=== PATIENT | male | born 1995 | race Caucasian/White ===

== ENCOUNTER 2022-09-03 04:02 | Emergency (ER) | payer OTHER, SELFPAY ==
[2022-09-03] VITALS (9 sets, daily range): BP systolic 120–153; BP diastolic 61–85; PULSE 55–70; RESP 16; TEMP 36.4; O2SAT 97–99; BMI 35.9
[2022-09-03 04:35] LABS: Add Manual Diff / Slide Review NO; Basophils Absolute Auto 0 /uL (0-100); Basophils Percent Auto 0.7 % (0-2); Eosinophils Absolute Auto 200 /uL (0-450); Eosinophils Percent Auto 2.9 % (2-4); Hemoglobin 14.5 g/dL (13.5-17.5); Lymphocytes Absolute Auto 2100 /uL (1100-4500); Lymphocytes Percent Auto 35.4 % (25-40); Mean Corpuscular HGB Conc 35.3 % (30-36); Mean Corpuscular Hemoglobin 30.2 PG (26-34); Mean Corpuscular Volume 85.3 fL (80-100); Monocytes Absolute Auto 500 /uL (0-900); Monocytes Percent Auto 8.4 % (3-14); Neutrophils Absolute Auto 3100 /uL (1500-7000); Neutrophils Percent Auto 52.6 % (50-75); Platelet Count 255 X10^3/uL (150-400); Red Cell Distribution Width 12.5 % (11.6-14.8); White Blood Cell Count 5.9 X10^3/uL (4.5-11.0)
[2022-09-03 04:43] LABS: Alanine Aminotransferase 29 IU/L (<50); Albumin 4.3 g/dL (3.5-5.0); Albumin Globulin Ratio 1.2 (1.0-2.8); Alkaline Phosphatase 51 U/L (38-126); Aspartate Aminotransferase 29 IU/L (17-59); BUN Creatinine Ratio 15.5 (6-22); Bilirubin Total 0.5 mg/dL (0.2-1.3); Blood Urea Nitrogen 11 mg/dL (9-20); Calcium 8.7 mg/dL (8.4-10.2); Carbon Dioxide 24 mmol/L (22-32); Chloride 103 mmol/L (98-107); Estimated Glomerular Filt Rate > 60 mL/min (>60); Globulin 3.5 g/dL (1.7-4.1); Glucose 109 mg/dL (70-100); HEMOLYSIS 30 (0-50); Lipase 94 U/L (23-300); Sodium 137 mmol/L (137-145); Total Protein 7.8 g/dL (6.3-8.2)
--- NOTE | 2022-09-03 06:17 | DI.CT.S_ITS ---
PROCEDURE: CT ABDOMEN PELVIS W CON INDICATIONS: epigastric pain TECHNIQUE: After the administration of intravenous contrast, axial sections acquired from the lung bases to the pubic symphysis. Coronal and sagittal reformats were performed. For radiation dose reduction, the following was used: automated exposure control, adjustment of mA and/or kV according to patient size. COMPARISON: None. FINDINGS: Image quality: Excellent. Lung bases: Unremarkable. Heart: No significant findings. ABDOMEN: Liver: Unremarkable. Gallbladder: Unremarkable. Biliary ducts: Unremarkable. Pancreas: Unremarkable. Spleen: Unremarkable. Adrenal Glands: Unremarkable. Kidneys and Ureters: Unremarkable. Stomach and Bowel: Stomach, small bowel loops, and colon are unremarkable. [id number] stool in the colon. Normal appendix. Peritoneum: No abnormal intraperitoneal fluid. No free air. Ventral Wall: Tiny periumbilical hernia. Nodular thickening is seen at the skin surface at the right suprapubic region with surrounding subcutaneous fat stranding. Abdominal Nodes: No retroperitoneal or mesenteric adenopathy by size criteria. Vessels: Aorta and inferior vena cava are normal in size. PELVIS: Pelvic Organs: Unremarkable. Bladder: Unremarkable. Pelvic Nodes: No enlarged lymph nodes. Miscellaneous: No hernias are seen. Bones: Unremarkable. IMPRESSION: 1. Focal skin thickening and surrounding subcutaneous edema at the right lower abdominal wall in the suprapubic region. 2. No acute intraperitoneal abnormality identified. There is no significant discrepancy when compared to the overnight preliminary report. Approved by: Vicente Vo M.D. on 09/03/2022 at 8:34
--- NOTE | 2022-09-03 06:18 | ED_ITS ---
HPI - Abdominal Pain <Kelly Chaudhary DO - Last Filed: 09/08/22 08:08> General Chief Complaint: Abdominal Pain Stated Complaint: abd pain Time Seen by Provider: 09/03/22 06:05 Source: patient Mode of arrival: Ambulatory History of Present Illness HPI narrative: This is a 27-year-old male with history of reflux, no prior surgeries. Patient states he started developing epigastric abdominal pain over the last day. It has been persistent. Does not radiate to his chest. Does not radiate to his lower abdomen. He denies any radiation to his back pain goes a little bit off to the right side. Patient denies fevers, chills or diaphoresis. Denies any nausea or vomiting. States he had a bowel movement this evening. No black or bloody stools. He states no diarrhea or constipation. No dysuria, urgency or frequency. No flank pain. Patient states he takes omeprazole daily. No prior surgeries. No known drug allergies. He vapes tobacco, alcohol once or twice monthly, no illicit. He is accompanied by his partner. Denies any cardiac medical history or GI/Crohn history. Related Data Allergies Allergy/AdvReac Type Severity Reaction Status Date / Time No Known Drug Allergies Allergy Verified 09/03/22 06:23 Review of Systems <Kelly Chaudhary DO - Last Filed: 09/08/22 08:08> Review of Systems ROS Unobtainable: All systems reviewed & are unremarkable except as noted in HPI and below Patient History <Kelly Chaudhary DO - Last Filed: 09/08/22 08:08> Social History Smoking Status: Current every day smoker Smoking Status: Current every day smoker tobacco type: vaping alcohol intake frequency: holidays/special occasions only Exam <Kelly Chaudhary DO - Last Filed: 09/08/22 08:08> Narrative Exam Narrative: GENERAL: Alert and oriented x three, male in [id number] distress. HEENT: Head normocephalic, atraumatic, EOMI, pupils reactive, face symmetric, moist mucous membranes NECK: Supple, full range of motion CARDIOVASCULAR: Regular rate and rhythm without murmurs, rubs or gallops. RESPIRATORY: Breath sounds equal bilaterally, no wheezes rales or rhonchi. No tachypnea or accessory muscle use. ABDOMEN: Soft, nontender. Nondistended. Normoactive bowel sounds all 4 quadrants. No guarding or rebound, rigidity, no mass, no bruit or pulsatile mass. : No CVA tenderness EXTREMITIES: Normal range of motion, no clubbing or edema. Neurovascularly intact NEUROLOGICAL: Cranial nerves II through XII grossly intact. Moving all extremities SKIN: Warm, dry, no petechiae, no rashes or lesions. Initial Vital Signs Initial Vital Signs: Vital Signs Temperature 97.6 F 09/03/22 04:08 Pulse Rate 70 09/03/22 04:08 Respiratory Rate 16 09/03/22 04:08 Pulse Oximetry 98 09/03/22 04:08 Oxygen Delivery Method 09/03/22 04:08 <Seng Agustin DO - Last Filed: 09/03/22 13:20> Initial Vital Signs Initial Vital Signs: Vital Signs Temperature 97.6 F 09/03/22 04:08 Pulse Rate 70 09/03/22 04:08 Respiratory Rate 16 09/03/22 04:08 Pulse Oximetry 98 09/03/22 04:08 Oxygen Delivery Method 09/03/22 04:08 Course <Kelly Chaudhary, DO - Last Filed: 09/08/22 08:08> Orders Ordered: Discontinued Medications Sodium Chloride (Normal Saline 0.9%) 1,000 mls @ 1,000 mls/hr IV BOLUS ONE Stop: 09/03/22 07:15 Last Infusion: 09/03/22 07:54 Dose: 0 mls/hr Documented By: Admin: 09/03/22 06:35 Dose: 1,000 mls/hr Documented By: ROWAN Ondansetron HCl (Ondansetron 4 Mg Odt) 4 mg PO NOW PRN PRN Reason: Nausea And Vomiting Ondansetron HCl (Ondansetron 4 Mg/2 Ml Inj) 4 mg IV NOW PRN PRN Reason: Nausea And Vomiting Pantoprazole Sodium (Pantoprazole 40 Mg Vial) 40 mg IV NOW ONE Stop: 09/03/22 06:17 Last Admin: 09/03/22 06:35 Dose: 40 mg Documented By: BS Vital Signs Vital signs: Vital Signs - 8 hr 09/03/22 05:46 09/03/22 05:46 09/03/22 06:00 Pulse Rate 55 L 58 L Blood Pressure 125/82 Pulse Oximetry 99 98 09/03/22 06:36 09/03/22 06:40 09/03/22 06:40 Pulse Rate 59 L 55 L Blood Pressure 120/74 Pulse Oximetry 97 97 09/03/22 07:00 09/03/22 07:00 09/03/22 07:30 Pulse Rate 67 Blood Pressure 153/84 H 136/85 Pulse Oximetry 99 09/03/22 07:30 09/03/22 08:11 09/03/22 08:12 Pulse Rate 65 Blood Pressure 138/61 Pulse Oximetry 97 98 09/03/22 08:12 Pulse Rate 63 Blood Pressure Pulse Oximetry 98 <Seng Agustin DO - Last Filed: 09/03/22 13:20> Orders Ordered: Discontinued Medications Sodium Chloride (Normal Saline 0.9%) 1,000 mls @ 1,000 mls/hr IV BOLUS ONE Stop: 09/03/22 07:15 Last Infusion: 09/03/22 07:54 Dose: 0 mls/hr Documented By: Admin: 09/03/22 06:35 Dose: 1,000 mls/hr Documented By: ROWAN Ondansetron HCl (Ondansetron 4 Mg Odt) 4 mg PO NOW PRN PRN Reason: Nausea And Vomiting Ondansetron HCl (Ondansetron 4 Mg/2 Ml Inj) 4 mg IV NOW PRN PRN Reason: Nausea And Vomiting Pantoprazole Sodium (Pantoprazole 40 Mg Vial) 40 mg IV NOW ONE Stop: 09/03/22 06:17 Last Admin: 09/03/22 06:35 Dose: 40 mg Documented By: ROWAN Vital Signs Vital signs: Vital Signs - 8 hr 09/03/22 05:46 09/03/22 05:46 09/03/22 06:00 Pulse Rate 55 L 58 L Blood Pressure 125/82 Pulse Oximetry 99 98 09/03/22 06:36 09/03/22 06:40 09/03/22 06:40 Pulse Rate 59 L 55 L Blood Pressure 120/74 Pulse Oximetry 97 97 09/03/22 07:00 09/03/22 07:00 09/03/22 07:30 Pulse Rate 67 Blood Pressure 153/84 H 136/85 Pulse Oximetry 99 09/03/22 07:30 09/03/22 08:11 09/03/22 08:12 Pulse Rate 65 Blood Pressure 138/61 Pulse Oximetry 97 98 09/03/22 08:12 Pulse Rate 63 Blood Pressure Pulse Oximetry 98 MDM - Abdominal Pain <Kelly Chaudhary, - Last Filed: 09/08/22 08:08> Lab Data 09/03/22 04:20 09/03/22 04:20 Labs: Lab Results 09/03/22 09/03/22 Range/Units 04:20 04:20 WBC 5.9 (4.5-11.0) X10^3/uL RBC 4.80 (4.5-5.9) X10^6/uL Hgb 14.5 (13.5-17.5) g/dL Hct 41.0 (41-53) % MCV 85.3 (80-100) fL MCH 30.2 (26-34) PG MCHC 35.3 (30-36) % RDW 12.5 (11.6-14.8) % Plt Count 255 (150-400) X10^3/uL Neut % (Auto) 52.6 (50-75) % Lymph % (Auto) 35.4 (25-40) % [place] % (Auto) 8.4 (3-14) % Eos % (Auto) 2.9 (2-4) % Baso % (Auto) 0.7 (0-2) % Neut # (Auto) 3100 (7151-7172) /uL Lymph # (Auto) 2100 (2610-1140) /uL [place] # (Auto) 500 (0-900) /uL Eos # (Auto) 200 (0-450) /uL Baso # (Auto) 0 (0-100) /uL Sodium 137 (137-145) mmol/L Potassium 4.0 (3.4-5.1) mmol/L Chloride 103 (98-107) mmol/L Carbon Dioxide 24 (22-32) mmol/L BUN 11 (9-20) mg/dL Creatinine 0.71 (0.66-1.25) mg/dL Estimated GFR > 60 (>60) mL/min BUN/Creatinine Ratio 15.5 (6-22) Glucose 109 H (70-100) mg/dL Calcium 8.7 (8.4-10.2) mg/dL Total Bilirubin 0.5 (0.2-1.3) mg/dL AST 29 (17-59) IU/L ALT 29 (<50) IU/L Alkaline Phosphatase 51 (38-126) U/L Total Protein 7.8 (6.3-8.2) g/dL Albumin 4.3 (3.5-5.0) g/dL Globulin 3.5 (1.7-4.1) g/dL Albumin/Globulin Ratio 1.2 (1.0-2.8) Lipase 94 (23-300) U/L Point of care testing: Urine Dip Bedside Urine Glucose Negative Bedside Urine Bilirubin - Negative Bedside Urine Ketone - Negative Urine Specific [place] 1.005 Bedside Urine Occult Blood - Negative Bedside Urine pH 5.5 Bedside Urine Protein - Negative Bedside Urine Urobilinogen - Negative Bedside Urine Nitrite - Negative Bedside Urine Leukocytes - Negative Esterase MDM Narrative Medical decision making narrative: This is a 27-year-old male comes in with complaint of upper abdominal epigastric pain that has been present for last 24 hours. He has a history GERD he states this feels much different. States little bit radiation to the right. He is nontender on examination. I am not able to increase her palpate his pain. Patient denies fevers chills, no nausea. He had a normal bowel movement today. Plan for EKG, CMP, CBC and lipase are negative. Patient had imaging obtained. Signed out to Dr. Agustin while awaiting results and urine results. Patient had Protonix with some improvement of his symptoms. CC: 27M sudden RUQ pain Complicating co-morbidities: GERD, smoker Data collected from: patient Medical records reviewed: no records available in EMR Differential considered, but not limited to: gall bladder, pancreatitis, GERD vs. other Exam documented above, pertinent findings include: Soft abdomen bowel sounds present Lab Test results independently reviewed as above. Pertinent findings: No obvious leukocytosis or left shift, lytes, kidney function, LFTs and lipase within normal Independently reviewed EKG as above Imaging studies independently reviewed: CT without obstructive process, large stool burden noted Treatments: Saline, Zofran, Protonix Re-evaluations: Patient feeling much better Discussion: 19-year-old male with sudden onset colicky type upper abdominal pain with very reassuring history and physical exam, no remarkable labs, appropriate response to therapies and CT of the abdomen without significant findings. The multiple diagnoses were considered as noted above it seems likely that a combination of perhaps some reflux and abdominal pain related to a large stool burden are other source. Disposition: see below, along with detailed discharge instructions that have been reviewed with patient as well as indications for ED re-evaluation and additional outpatient follow up <Seng gAustin DO - Last Filed: 09/03/22 13:20> Lab Data Labs: Lab Results 09/03/22 09/03/22 Range/Units 04:20 04:20 WBC 5.9 (4.5-11.0) X10^3/uL RBC 4.80 (4.5-5.9) X10^6/uL Hgb 14.5 (13.5-17.5) g/dL Hct 41.0 (41-53) % MCV 85.3 (80-100) fL MCH 30.2 (26-34) PG MCHC 35.3 (30-36) % RDW 12.5 (11.6-14.8) % Plt Count 255 (150-400) X10^3/uL Neut % (Auto) 52.6 (50-75) % Lymph % (Auto) 35.4 (25-40) % [place] % (Auto) 8.4 (3-14) % Eos % (Auto) 2.9 (2-4) % Baso % (Auto) 0.7 (0-2) % Neut # (Auto) 3100 (5589-5910) /uL Lymph # (Auto) 2100 (6700-9739) /uL Payne # (Auto) 500 (0-900) /uL Eos # (Auto) 200 (0-450) /uL Baso # (Auto) 0 (0-100) /uL Sodium 137 (137-145) mmol/L Potassium 4.0 (3.4-5.1) mmol/L Chloride 103 (98-107) mmol/L Carbon Dioxide 24 (22-32) mmol/L BUN 11 (9-20) mg/dL Creatinine 0.71 (0.66-1.25) mg/dL Estimated GFR > 60 (>60) mL/min BUN/Creatinine Ratio 15.5 (6-22) Glucose 109 H (70-100) mg/dL Calcium 8.7 (8.4-10.2) mg/dL Total Bilirubin 0.5 (0.2-1.3) mg/dL AST 29 (17-59) IU/L ALT 29 (<50) IU/L Alkaline Phosphatase 51 (38-126) U/L Total Protein 7.8 (6.3-8.2) g/dL Albumin 4.3 (3.5-5.0) g/dL Globulin 3.5 (1.7-4.1) g/dL Albumin/Globulin Ratio 1.2 (1.0-2.8) Lipase 94 (23-300) U/L Point of care testing: Urine Dip Bedside Urine Glucose Negative Bedside Urine Bilirubin - Negative Bedside Urine Ketone - Negative Urine Specific [place] 1.005 Bedside Urine Occult Blood - Negative Bedside Urine pH 5.5 Bedside Urine Protein - Negative Bedside Urine Urobilinogen - Negative Bedside Urine Nitrite - Negative Bedside Urine Leukocytes - Negative Esterase Imaging Data CT scan - abdomen/pelvis: Radiologist's Impression: edema and skin thickening involving the lower anterior abdominal segment moderate to large stool burden MDM Narrative Medical decision making narrative: This is a 27-year-old male comes in with complaint of upper abdominal epigastric pain that has been present for last 24 hours. He has a history GERD he states this feels much different. States little bit radiation to the right. He is nontender on examination. I am not able to increase her palpate his pain. Patient denies fevers chills, no nausea. He had a normal bowel movement today. Plan for EKG, CMP, CBC and lipase are negative. CC: 27M sudden RUQ pain Complicating co-morbidities: GERD, smoker Data collected from: patient Medical records reviewed: no records available in EMR Differential considered, but not limited to: gall bladder, pancreatitis, GERD vs. other Exam documented above, pertinent findings include: Soft abdomen bowel sounds present Lab Test results independently reviewed as above. Pertinent findings: No obvious leukocytosis or left shift, lytes, kidney function, LFTs and lipase within normal Independently reviewed EKG as above Imaging studies independently reviewed: CT without obstructive process, large stool burden noted Treatments: Saline, Zofran, Protonix Re-evaluations: Patient feeling much better Discussion: 19-year-old male with sudden onset colicky type upper abdominal pain with very reassuring history and physical exam, no remarkable labs, appropriate response to therapies and CT of the abdomen without significant findings. The multiple diagnoses were considered as noted above it seems likely that a combination of perhaps some reflux and abdominal pain related to a large stool burden are other source. Disposition: see below, along with detailed discharge instructions that have been reviewed with patient as well as indications for ED re-evaluation and additional outpatient follow up Discharge Plan Departure Patient Disposition: Home Clinical Impression: Abdominal pain Instructions: DI for Abdominal Pain-Adult Activity Restrictions/Additional Instructions: *You have been diagnosed with [ abdominal pain likely due to constipation ] *What to do: *Take over the counter medications as directed: 1. Metamucil - is a bulk forming laxative and adds fiber 2. Colace - softens your stool 3. Dulcolax suppository - stimulates your bowels *Follow up with your primary care provider in 2-3 days, call for appointment *Return to ER if you should have any new, worsening or concerning symptoms *Drink plenty of water and eat foods high in fiber *Stay as active as you can as this helps move your bowels as well Referrals: ProviderYsabel [Primary Care Provider] - Stand Alone Forms: Patient Portal/API
[2022-09-03] MEDS: PANTOPRAZOLE 40 MG VIAL IV (06:35)
[2022-09-03] MEDS: SODIUM CHLORIDE 0.9% 1,000 ML 1000 ML IV (06:35)
== END 2022-09-03 08:15 | disposition home or self-care (01) ==
PROVIDERS: Emergency Medicine; Emergency Provider Emergency Medicine
DX: R10.13 Epigastric pain (principal)
CPT/HCPCS: 36415; 74177; 80053; 81003; 83690; 85025; 93005; 96374; 99284; C9113; Q9967

== ENCOUNTER 2023-11-08 17:08 | Emergency (ER) | payer OTHER, SELFPAY ==
[2023-11-08 17:17] VITALS: BP 143/86; PULSE 76; RESP 15; TEMP 36.8; O2SAT 97; BMI 38.0
[2023-11-08 18:06] LABS: Add Manual Diff / Slide Review NO; Basophils Absolute Auto 0 /uL (0-100); Basophils Percent Auto 0.3 % (0-2); Eosinophils Absolute Auto 100 /uL (0-450); Eosinophils Percent Auto 1.7 % (2-4); Hematocrit 38.7 % (41-53); Hemoglobin 13.3 g/dL (13.5-17.5); Lymphocytes Absolute Auto 2300 /uL (1100-4500); Lymphocytes Percent Auto 36.6 % (25-40); Mean Corpuscular HGB Conc 34.5 % (30-36); Mean Corpuscular Hemoglobin 29.8 PG (26-34); Mean Corpuscular Volume 86.3 fL (80-100); Monocytes Absolute Auto 400 /uL (0-900); Monocytes Percent Auto 6.4 % (3-14); Neutrophils Absolute Auto 3500 /uL (1500-7000); Platelet Count 255 X10^3/uL (150-400); Red Blood Cell Count 4.48 X10^6/uL (4.5-5.9); White Blood Cell Count 6.3 X10^3/uL (4.5-11.0)
[2023-11-08 18:18] LABS: Alanine Aminotransferase 26 IU/L (<50); Albumin 4.4 g/dL (3.5-5.0); Albumin Globulin Ratio 1.3 (1.0-2.8); Alkaline Phosphatase 53 U/L (38-126); Aspartate Aminotransferase 28 IU/L (17-59); BUN Creatinine Ratio 15.5 (6-22); Bilirubin Total 0.7 mg/dL (0.2-1.3); Blood Urea Nitrogen 11 mg/dL (9-20); Calcium 9.2 mg/dL (8.4-10.2); Carbon Dioxide 26 mmol/L (22-32); Chloride 105 mmol/L (98-107); Estimated Glomerular Filt Rate > 60 mL/min (>60); Globulin 3.3 g/dL (1.7-4.1); Glucose 95 mg/dL (70-100); HEMOLYSIS < 15 (0-50); Lipase 91 U/L (23-300); Potassium 3.7 mmol/L (3.4-5.1); Sodium 138 mmol/L (137-145); Total Protein 7.7 g/dL (6.3-8.2)
--- NOTE | 2023-11-08 18:59 | ED.ABDPAIN ---
HPI - Abdominal Pain General Chief Complaint: Abdominal Pain Stated Complaint: ABD Pain/dizzy Time Seen by Provider: 11/08/23 17:56 Source: patient Mode of arrival: Ambulatory History of Present Illness HPI narrative: Patient is a healthy 28-year-old female who has had chronic ongoing abdominal pain. He says that he had a CT scan last year showed that he is constipated he has been taking Colace every day however over the last 2 days he has had increased abdominal pain more over his pain umbilical region has not really radiating. He has not taken anything for pain. No nausea or vomiting no fever or chills. But he reports this is very different from his normal pain. Related Data Allergies Allergy/AdvReac Type Severity Reaction Status Date / Time No Known Drug Allergies Allergy Verified 11/08/23 17:17 Patient History Social History Smoking Status: Former smoker Smoking Status: Former smoker tobacco type: vaping alcohol intake frequency: holidays/special occasions only Substance Use Type: marijuana Exam Initial Vital Signs Initial Vital Signs: Vital Signs Temperature 98.3 F 11/08/23 17:17 Pulse Rate 76 11/08/23 17:17 Respiratory Rate 15 11/08/23 17:17 Blood Pressure 143/86 H 11/08/23 17:17 Pulse Oximetry 97 11/08/23 17:17 Oxygen Delivery Method Room Air 11/08/23 17:17 GENERAL: Alert 28-year-old male appears to not feel well HEENT: Head atraumatic,EOMI, pupils reactive, face symmetric, moist mucous membranes CARDIOVASCULAR: Regular rate and rhythm without murmurs, rubs or gallops. RESPIRATORY: Breath sounds equal bilaterally, no wheezes rales or rhonchi. ABDOMEN: Soft, mild tenderness periumbilical mid abdomen region no significant distention EXTREMITIES: Normal range of motion, no clubbing or edema. Neurovascularly intact NEUROLOGICAL: Alert and oriented x4.Normal gait and speech. SKIN: Warm, dry, no laceration, no petechiae, no rashes or lesions. Course Orders Ordered: ED Orders 11/08/23 19:03 CT abdomen pelvis w con Stat Discontinued Medications Ketorolac Tromethamine (Ketorolac 30 Mg/Ml Vial) 15 mg IV NOW ONE Stop: 11/08/23 19:04 Last Admin: 11/08/23 19:23 Dose: 15 mg Documented By: TOY Ondansetron HCl (Ondansetron 4 Mg Odt) 4 mg PO NOW PRN PRN Reason: Nausea And Vomiting Ondansetron HCl (Ondansetron 4 Mg/2 Ml Inj) 4 mg IV NOW PRN PRN Reason: Nausea And Vomiting Vital Signs Vital signs: Vital Signs - 8 hr 11/08/23 20:40 Pulse Rate 60 Respiratory Rate 18 Blood Pressure 121/60 Pulse Oximetry 98 Oxygen Delivery Method Room Air MDM - Abdominal Pain Lab Data 11/08/23 17:35 11/08/23 17:35 Labs: Lab Results 11/08/23 Range/Units 17:35 WBC 6.3 (4.5-11.0) X10^3/uL RBC 4.48 L (4.5-5.9) X10^6/uL Hgb 13.3 L (13.5-17.5) g/dL Hct 38.7 L (41-53) % MCV 86.3 (80-100) fL MCH 29.8 (26-34) PG MCHC 34.5 (30-36) % RDW 13.0 (11.6-14.8) % Plt Count 255 (150-400) X10^3/uL Neut % (Auto) 55.0 (50-75) % Lymph % (Auto) 36.6 (25-40) % [place] % (Auto) 6.4 (3-14) % Eos % (Auto) 1.7 L (2-4) % Baso % (Auto) 0.3 (0-2) % Neut # (Auto) 3500 (0235-7924) /uL Lymph # (Auto) 2300 (1865-2473) /uL [place] # (Auto) 400 (0-900) /uL Eos # (Auto) 100 (0-450) /uL Baso # (Auto) 0 (0-100) /uL Sodium 138 (137-145) mmol/L Potassium 3.7 (3.4-5.1) mmol/L Chloride 105 (98-107) mmol/L Carbon Dioxide 26 (22-32) mmol/L BUN 11 (9-20) mg/dL Creatinine 0.71 (0.66-1.25) mg/dL Estimated GFR > 60 (>60) mL/min BUN/Creatinine Ratio 15.5 (6-22) Glucose 95 (70-100) mg/dL Calcium 9.2 (8.4-10.2) mg/dL Total Bilirubin 0.7 (0.2-1.3) mg/dL AST 28 (17-59) IU/L ALT 26 (<50) IU/L Alkaline Phosphatase 53 (38-126) U/L Total Protein 7.7 (6.3-8.2) g/dL Albumin 4.4 (3.5-5.0) g/dL Globulin 3.3 (1.7-4.1) g/dL Albumin/Globulin Ratio 1.3 (1.0-2.8) Lipase 91 (23-300) U/L Point of care testing: Urine Dip Bedside Urine Glucose Negative Bedside Urine Bilirubin - Negative Bedside Urine Ketone - Negative Urine Specific [place] 1.020 Bedside Urine Occult Blood - Negative Bedside Urine pH 6.0 Bedside Urine Protein - Negative Bedside Urine Urobilinogen - Negative Bedside Urine Nitrite - Negative Bedside Urine Leukocytes - Negative Esterase Imaging Data CT scan - abdomen/pelvis: Radiologist's Impression: PROCEDURE: CT ABDOMEN PELVIS W CON INDICATIONS: periumbilical pain TECHNIQUE: After the administration of intravenous contrast, axial sections acquired from the lung bases to the pubic symphysis. Coronal and sagittal reformats were performed. For radiation dose reduction, the following was used: automated exposure control, adjustment of mA and/or kV according to patient size. COMPARISON: [facility], CT, CT ABDOMEN PELVIS W CON, 09/03/2022, 6:22. FINDINGS: Image quality: Diagnostic. Lower Chest: No significant findings. ABDOMEN: Liver: No solid mass. Gallbladder: No radiopaque gallstones or wall thickening. Biliary ducts: No biliary dilation. Pancreas: No ductal dilation. Spleen: Size is within normal limits. Adrenal Glands: No adrenal nodules. Kidneys and Ureters: No hydronephrosis. No solid mass. No complex renal cystic lesion which requires follow up. Stomach and Bowel: Normal colonic caliber, without significant wall thickening. Normal appendix. Peritoneum: No abnormal intraperitoneal fluid. No free air. Ventral Wall: Tiny fat containing periumbilical hernia. Abdominal Nodes: No retroperitoneal or mesenteric adenopathy by size criteria. Vessels: Aorta and inferior vena cava are normal in size. PELVIS: Pelvic Organs: Unremarkable. Bladder: No bladder wall thickening, accounting for underdistention. Pelvic Nodes: No enlarged lymph nodes. Miscellaneous: No inguinal hernias are seen. Bones: No aggressive osseous abnormality. IMPRESSION: No acute findings within the abdomen or pelvis to explain patient's symptoms. Dictated by: Boyd Mcintosh M.D. on 11/08/2023 at 19:54 MDM Narrative Medical decision making narrative: Patient 28-year-old male history of ongoing abdominal pain presenting today with worsening abdominal pain the last 2 days. On exam abdomen is mildly tender in the periumbilical region. Blood work has been reviewed WBC 6.3 hemoglobin 13.3 hematocrit 38.7, electrolytes within normal limits creatinine 0.[address] imaging reviewed did not show any positive abdominal pain Patient has had ongoing abdominal pain for a year or more history of constipation CT does not show significant constipation At this time recommend outpatient follow-up Tylenol ibuprofen if needed. Discharge Plan Departure Patient Disposition: Home Clinical Impression: Abdominal pain Instructions: DI for Abdominal Pain-Adult Activity Restrictions/Additional Instructions: *You have been diagnosed with chronic abdominal pain *What to do: At this time CT scan overall reassuring. Recommend possible colonoscopy. Although I do start taking your sertraline it may actually help her abdominal pain as well. *Continue to take medications as directed Tylenol Motrin as directed if needed for pain *Follow up with your primary care provider in 2-3 days or call [phone] *Return to ER if you should have increasing pain nausea vomiting fever or any new, worsening or concerning symptoms Referrals: ProviderYsabel [Primary Care Provider] - Stand Alone Forms: Patient Portal/API
--- NOTE | 2023-11-08 19:03 | DI.CT.S_ITS ---
PROCEDURE: CT ABDOMEN PELVIS W CON INDICATIONS: periumbilical pain TECHNIQUE: After the administration of intravenous contrast, axial sections acquired from the lung bases to the pubic symphysis. Coronal and sagittal reformats were performed. For radiation dose reduction, the following was used: automated exposure control, adjustment of mA and/or kV according to patient size. COMPARISON: [facility], CT, CT ABDOMEN PELVIS W CON, 09/03/2022, 6:22. FINDINGS: Image quality: Diagnostic. Lower Chest: No significant findings. ABDOMEN: Liver: No solid mass. Gallbladder: No radiopaque gallstones or wall thickening. Biliary ducts: No biliary dilation. Pancreas: No ductal dilation. Spleen: Size is within normal limits. Adrenal Glands: No adrenal nodules. Kidneys and Ureters: No hydronephrosis. No solid mass. No complex renal cystic lesion which requires follow up. Stomach and Bowel: Normal colonic caliber, without significant wall thickening. Normal appendix. Peritoneum: No abnormal intraperitoneal fluid. No free air. Ventral Wall: Tiny fat containing periumbilical hernia. Abdominal Nodes: No retroperitoneal or mesenteric adenopathy by size criteria. Vessels: Aorta and inferior vena cava are normal in size. PELVIS: Pelvic Organs: Unremarkable. Bladder: No bladder wall thickening, accounting for underdistention. Pelvic Nodes: No enlarged lymph nodes. Miscellaneous: No inguinal hernias are seen. Bones: No aggressive osseous abnormality. IMPRESSION: No acute findings within the abdomen or pelvis to explain patient's symptoms. Dictated by: Boyd Mcintosh M.D. on 11/08/2023 at 19:54 Approved by: Boyd Mcintosh M.D. on 11/08/2023 at 19:58
[2023-11-08] MEDS: KETOROLAC 30 MG/ML VIAL 15 MG IV (19:23)
[2023-11-08 20:40] VITALS: BP 121/60; PULSE 60; RESP 18; O2SAT 98
== END 2023-11-08 20:43 | disposition home or self-care (01) ==
PROVIDERS: Emergency Medicine; Emergency Provider Emergency Medicine
DX: R10.33 Periumbilical pain (principal)
CPT/HCPCS: 36415; 74177; 80053; 81003; 83690; 85025; 99284; J1885; Q9967

== ENCOUNTER 2023-12-17 19:29 | Emergency (ER) | payer OTHER, SELFPAY ==
[2023-12-17 19:57] VITALS: BP 130/73; PULSE 80; RESP 16; O2SAT 98; BMI 37.3
--- NOTE | 2023-12-17 22:27 | ED.GENADULT ---
HPI - General Adult General Chief complaint: Ear Stated complaint: Rt ear injury Time Seen by Provider: 12/17/23 22:13 Source: patient Mode of arrival: Ambulatory History of Present Illness HPI narrative: Patient is a 28-year-old male here for evaluation of what he states is a foreign body stuck into his right ear. He states he was trying to clean his ears out in preparation for a auditory exam that he was scheduled for tomorrow morning. He used a solution and was able to get out quite a bit of ear wax but then he used a small camera that is used to look in 1 year's and he states that the tip of the camera which is blue his now stuck in his ear. Related Data Allergies Allergy/AdvReac Type Severity Reaction Status Date / Time No Known Drug Allergies Allergy Verified 11/08/23 17:17 Review of Systems ENT Ears, Nose, Mouth, and Throat: Reports system reviewed and no additional complaints, except as documented Patient History Social History Smoking Status: Former smoker Smoking Status: Former smoker tobacco type: vaping alcohol intake frequency: holidays/special occasions only Substance Use Type: marijuana Exam Initial Vital Signs Initial Vital Signs: Vital Signs Pulse Rate 80 12/17/23 19:57 Respiratory Rate 16 12/17/23 19:57 Blood Pressure 130/73 12/17/23 19:57 Pulse Oximetry 98 12/17/23 19:57 Oxygen Delivery Method Room Air 12/17/23 19:57 HENMT Ears: EAC abnormal cerumen impaction on the right, erythema on the right and foreign body not on the right Course Vital Signs Vital signs: Vital Signs - 8 hr 12/17/23 22:58 Pulse Rate 71 Respiratory Rate 16 Blood Pressure 131/71 Pulse Oximetry 98 Oxygen Delivery Method Room Air Medical Decision Making [facility] Narrative Medical decision making narrative: He does have irritation of the external auditory canal of the right ear. He either from injuring it with looking in his ear with the camera or potentially irritation because removal of ear wax earlier today. He does have a cerumen impaction in his right ear. I am unable to visualize the tympanic membrane. I do not see any specific foreign body in his ear. The cerumen impaction is to posterior in order to be safely removed here in the emergency department. There was no indication for emergent ENT evaluation or consultation or treatment. Will discharge patient home with information about follow-up with ENT. I feel that continuing to use the Debrox to help loosen the ear wax in his right ear would be helpful and would not danger his tympanic membrane. I advised that he not put anything further into his ear except for the wax removal solution. Discharge Plan Departure Patient Disposition: Home Clinical Impression: Impacted cerumen Instructions: Cerumen Impaction Activity Restrictions/Additional Instructions: You can continue to use the Debrox that you have been using at home for the ear wax removal. I recommend that when the office is open you contact the Ear Nose [facility] Throat providers of the number provided below for follow-up. Return to the emergency department for new symptoms. Referrals: Shane Herrera MD [Physician] - Provider,Ysabel SAUCEDO [Primary Care Provider] - Stand Alone Forms: Patient Portal/API
[2023-12-17 22:58] VITALS: BP 131/71; PULSE 71; RESP 16; O2SAT 98
== END 2023-12-17 23:01 | disposition home or self-care (01) ==
PROVIDERS: Emergency Provider Emergency Medicine
DX: H61.21 Impacted cerumen, right ear (principal)
CPT/HCPCS: 99281